=== PATIENT | female | born 1990 | race Caucasian/White ===

== ENCOUNTER 2016-11-08 18:11 | Emergency (ER) | payer SELFPAY ==
--- NOTE | 2016-11-08 19:48 | DIAGNOSTIC IMAGING REPORT ---
PROCEDURE: US COMPLETE PELVIC W/TRANSVAG INDICATION: Left pelvic pain x 1 day TECHNIQUE: Transabdominal and endovaginal valdes scale and color Doppler sonographic images of the female pelvis were obtained. COMPARISON: None. FINDINGS: TRANSABDOMINAL SCANS: Retroverted uterus. Normal kidneys. TRANSVAGINAL SCANS: The uterus measures 8.2 x 3.8 x 5.8 cm. Myometrium is unremarkable. Endometrium is normal and measures 9.8 mm. Left ovary measures 3.9 x 3.1 x 2.7 cm with a 2.5 cm simple cyst. Right ovary measures 3.4 x 1.7 x 3.2 cm with small peripheral follicles. There is vascular flow to both ovaries. There is no free fluid in the cul-de-sac. IMPRESSION: 1. 2.5 cm simple left ovarian cyst 2. Retroverted uterus.
--- NOTE | 2016-11-08 21:26 | DIAGNOSTIC IMAGING REPORT ---
PROCEDURE: CT ABD/PELVIS WITH CONTRAST INDICATION: ABDOMINAL PAIN TECHNIQUE: 94 ml of Isovue 300 were injected intravenously and axial images were obtained of the entire abdomen and pelvis with sagittal and coronal reformations. COMPARISON: Compared to pelvic ultrasound earlier today (11/08/2016). FINDINGS: ABDOMEN: Gallbladder, liver, spleen, pancreas, kidneys, and aorta are normal. Bowel pattern is normal, including appendix. PELVIS: Retroverted uterus (normal variant). There is 2.5 cm left ovarian cyst with minimal free fluid. Right adnexal region appears normal. No evidence of free fluid. IMPRESSION: 1. There is a 2.5 cm left ovarian cyst with minimal free fluid. 2. Retroverted uterus (normal variant). 3. Otherwise negative CT abdomen and pelvis. 4. Finding discussed with NAN Fair. All CT scans at this facility use dose modulation, iterative reconstruction, and/or weight-based dosing when appropriate to reduce radiation dose to as low as reasonably achievable.
--- NOTE | 2016-11-08 21:38 | ED NURSING NOTES ---
Clinical Report - Nurses [facility] [address] [place] [address] 11/08/2016 18:11 Patient: JAY WINSLOW TRIAGE Triage time 1820 PM. Acuity: LEVEL 3. Chief Complaint: PELVIC PAIN. Alert. No acute distress. KATY COMA SCORE: [place] Coma Scale: 15- eyes open spontaneously (4); best verbal response- oriented x 4 (5); best motor response- obeys commands (6). --18:29 Sarah Lopez R.N. 18:22 11/08/16. BP: 134/76. HR: 56. RR: 20. O2 saturation: 100% on room air. Temp: 98.7 F (oral). Pain level now: 05/31. --18:29 Sarah Lopez R.N. Weight: 72.5 kg estimated. Height/Length: 64 inches Per Patient. BMI: 27.5. --18:29 Sarah Lopez R.N. Medications None. --18:23 Sarah Lopez R.N. Medication/allergy information source: the patient. --18:29 Sarah Lopez R.N. Allergies No Known Drug Allergy. --18:23 Sarah Lopez R.N. History Arrived by private vehicle. Historian: patient. Accompanied by family. Primary physician (none). ( Pt amharic speaking states that last night around 11 pm started with pelvic pain to the point that could not walk, denies pain upon urination, normal periods, not sexually active since October. Pt came to ED for further evaluation). This started last night. She has had abdominal pain and flank pain. No hematuria, abnormal bleeding or fever. 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 PAST MEDICAL HX: Immunizations: up-to-date. Last normal menstrual period- 1 weeks about. Sexual history - engages in unprotected sex. Uses contraception intermittently. Uses control pills. SOCIAL HX: Never smoker. No alcohol use or drug use. She has traveled outside the [place] (3 motnhs ago to [place]). SELF HARM ASSESSMENT: A self harm assessment was performed. The patient answered "no" to the question "Do you have thoughts of harming or killing yourself?" and "Have you recently had thoughts about harming or killing others?". FALL RISK ASSESSMENT: Fall risk assessment completed. No fall risk identified. NUTRITIONAL RISK ASSESSMENT: The nutritional risk assessment revealed no deficiencies. FUNCTIONAL ASSESSMENT: Functional assessment: no impairments noted. LEARNING NEEDS ASSESSMENT: The learning needs assessment revealed no barriers. SKIN INTEGRITY ASSESSMENT: Skin integrity risk assessment completed. No skin integrity risk identified. --18:29 Sarah Lopez R.N. PROBLEMS: Kidney Infection. --18:24 Sarah Lopez R.N. ADDITIONAL SURGERIES: no known surgeries. Interventions ID band on patient. --18:29 Sarah Lopez R.N. PHYSICAL ASSESSMENT Ambulatory to room. GENERAL / NEURO / PSYCH: Alert. Oriented X 4. Appears in no acute distress. Appears in pain. HEENT: Mucous membranes are pink. RESPIRATORY: Respirations not labored. Breath sounds within normal limits. CVS: Capillary refill less than 2 seconds. GI / : Abdomen soft. Bowel sounds within normal limits. Vaginal bleeding. Vaginal discharge. No vaginal bleeding or discharge. SKIN: Skin is warm and dry. --18:29 Sarah Lopez R.N. NURSING PROGRESS NOTES The initial plan of care for this patient has been created This plan of care was discussed with the patient. Patient gowned. Warming measures: blanket applied. Reassurance given and given. Two patient identifiers checked. Call light placed in reach. Side rails up x 1. Bed placed in lowest position. Brakes of bed on. Brakes of chair on. --18:31 Sarah Lopez R.N. PELVIC EXAM: Pelvic exam performed by GABRIELLA Manzano). Assisted by two nurses. Preparation: pelvic tray and culture medium. Procedure: speculum exam. Status post-procedure: she was stable and no complications were noted. Total time of assist / procedure: (less than 10 minutes). The patient is calm. GI / : The patient reports abdominal pain. Denies nausea, diarrhea or difficulty with urination. --18:45 Sarah Lopez R.N. ( Ultrasound at bedside). --19:15 Sobia Spears 19:48 11/08/2016 Site #1 started via IV in the right antecubital space with an 20g angiocath, with aseptic technique and good blood return; one attempt. Blood drawn: rainbow set. Labeled in the presence of the patient and sent to the lab. Saline lock flushed with 10 mL saline. --19:53 Sobia Spears 19:53 11/08/16. BP: 117/70. HR: 85. RR: 20. O2 saturation: 100% on room air. Pain level now: 05/31. --19:53 Sobia Spears The patient reports no complaints and she is resting quietly. --19:53 Sobia Spears 20:26 11/08/2016 Toradol IVP 30 mg given over 1 minute(s) via site #1. Allergies verified and confirmed 5 rights. IV patency established. IV site checked: no pain, redness, or swelling. IV flushed thoroughly pre- and post-medication administration. IVP given by RN. --20:26 Sobia Spears Patient transported to [place] by stretcher with tech. (20:50). --20:54 Brandi Mccurdy R.N. 21:03 11/08/2016 Dilaudid (HYDROmorphone HCl PF) IVP 0.5 mg given over 1 minute(s) via site #1. Allergies verified, confirmed 5 rights and sedative warning given to the patient. IV patency established. IV site checked: no pain, redness, or swelling. IV flushed thoroughly pre- and post-medication administration. IVP given by RN. --21:03 Brandi Mccurdy R.N. 21:03 11/08/16. BP: 115/68. HR: 97. RR: 15. O2 saturation: 100% on room air. Sanches-Novoa pain scale: 10. --21:04 Brandi Mccurdy R.N. DISPOSITION / DISCHARGE 21:50 11/08/16. BP: 117/69. HR: 85. RR: 20. O2 saturation: 100%. Temp: 98.3 F (oral). Pain level now: 01/29. --00:52 Sobia Spears 21:48 11/08/2016 Site #1 removed upon discharge. Catheter intact. Bandaid applied. --00:52 Sobia Spears 21:52 11/08/16. Condition at departure: stable. No learning barriers present. Discharge instructions provided and reviewed with the patient. Reviewed warnings (Do not drive on this medication). Reviewed medication(s) side effects, precautions, dosing and course information. Prescription(s) given to the patient. Patient verbalized understanding. Written instructions provided in Belarusian. ( Follow up with PCP in three days). The patient was discharged by the physician. She was discharged home and accompanied by family. She left the Emergency Department ambulatory and via private vehicle. Family member driving. --00:52 Sobia Spears. Locked/Released at 11/09/2016 0:53 by Sobia Spears,
--- NOTE | 2016-11-08 21:38 | ED NURSING NOTES ---
Clinical Report - Nurses [facility] [address] [place] [address] 11/08/2016 18:11 Patient: JAY WINSLOW TRIAGE Triage time 1820 PM. Acuity: LEVEL 3. Chief Complaint: PELVIC PAIN. Alert. No acute distress. KATY COMA SCORE: [place] Coma Scale: 15- eyes open spontaneously (4); best verbal response- oriented x 4 (5); best motor response- obeys commands (6). --18:29 Sarah Lopez R.N. 18:22 11/08/16. BP: 134/76. HR: 56. RR: 20. O2 saturation: 100% on room air. Temp: 98.7 F (oral). Pain level now: 05/31. --18:29 Sarah Lopez R.N. Weight: 72.5 kg estimated. Height/Length: 64 inches Per Patient. BMI: 27.5. --18:29 Sarah Lopez R.N. Medications None. --18:23 Sarah Lopez R.N. Medication/allergy information source: the patient. --18:29 Sarah Lopez R.N. Allergies No Known Drug Allergy. --18:23 Sarah Lopez R.N. History Arrived by private vehicle. Historian: patient. Accompanied by family. Primary physician (none). ( Pt kinyarwanda speaking states that last night around 11 pm started with pelvic pain to the point that could not walk, denies pain upon urination, normal periods, not sexually active since October. Pt came to ED for further evaluation). This started last night. She has had abdominal pain and flank pain. No hematuria, abnormal bleeding or fever. 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 PAST MEDICAL HX: Immunizations: up-to-date. Last normal menstrual period- 1 weeks about. Sexual history - engages in unprotected sex. Uses contraception intermittently. Uses control pills. SOCIAL HX: Never smoker. No alcohol use or drug use. She has traveled outside the [place] (3 motnhs ago to [place]). SELF HARM ASSESSMENT: A self harm assessment was performed. The patient answered "no" to the question "Do you have thoughts of harming or killing yourself?" and "Have you recently had thoughts about harming or killing others?". FALL RISK ASSESSMENT: Fall risk assessment completed. No fall risk identified. NUTRITIONAL RISK ASSESSMENT: The nutritional risk assessment revealed no deficiencies. FUNCTIONAL ASSESSMENT: Functional assessment: no impairments noted. LEARNING NEEDS ASSESSMENT: The learning needs assessment revealed no barriers. SKIN INTEGRITY ASSESSMENT: Skin integrity risk assessment completed. No skin integrity risk identified. --18:29 Sarah Lopez R.N. PROBLEMS: Kidney Infection. --18:24 Sarah Lopez R.N. ADDITIONAL SURGERIES: no known surgeries. Interventions ID band on patient. --18:29 Sarah Lopez R.N. PHYSICAL ASSESSMENT Ambulatory to room. GENERAL / NEURO / PSYCH: Alert. Oriented X 4. Appears in no acute distress. Appears in pain. HEENT: Mucous membranes are pink. RESPIRATORY: Respirations not labored. Breath sounds within normal limits. CVS: Capillary refill less than 2 seconds. GI / : Abdomen soft. Bowel sounds within normal limits. Vaginal bleeding. Vaginal discharge. No vaginal bleeding or discharge. SKIN: Skin is warm and dry. --18:29 Sarah Lopez R.N. NURSING PROGRESS NOTES The initial plan of care for this patient has been created This plan of care was discussed with the patient. Patient gowned. Warming measures: blanket applied. Reassurance given and given. Two patient identifiers checked. Call light placed in reach. Side rails up x 1. Bed placed in lowest position. Brakes of bed on. Brakes of chair on. --18:31 Sarah Lopez R.N. PELVIC EXAM: Pelvic exam performed by GABRIELLA Manzano). Assisted by two nurses. Preparation: pelvic tray and culture medium. Procedure: speculum exam. Status post-procedure: she was stable and no complications were noted. Total time of assist / procedure: (less than 10 minutes). The patient is calm. GI / : The patient reports abdominal pain. Denies nausea, diarrhea or difficulty with urination. --18:45 Sarah Lopez R.N. ( Ultrasound at bedside). --19:15 Sobia Spears 19:48 11/08/2016 Site #1 started via IV in the right antecubital space with an 20g angiocath, with aseptic technique and good blood return; one attempt. Blood drawn: rainbow set. Labeled in the presence of the patient and sent to the lab. Saline lock flushed with 10 mL saline. --19:53 Sobia Spears 19:53 11/08/16. BP: 117/70. HR: 85. RR: 20. O2 saturation: 100% on room air. Pain level now: 05/31. --19:53 Sobia Spears The patient reports no complaints and she is resting quietly. --19:53 Sobia Spears 20:26 11/08/2016 Toradol IVP 30 mg given over 1 minute(s) via site #1. Allergies verified and confirmed 5 rights. IV patency established. IV site checked: no pain, redness, or swelling. IV flushed thoroughly pre- and post-medication administration. IVP given by RN. --20:26 Sobia Spears Patient transported to [place] by stretcher with tech. (20:50). --20:54 Brandi Mccurdy R.N. 21:03 11/08/2016 Dilaudid (HYDROmorphone HCl PF) IVP 0.5 mg given over 1 minute(s) via site #1. Allergies verified, confirmed 5 rights and sedative warning given to the patient. IV patency established. IV site checked: no pain, redness, or swelling. IV flushed thoroughly pre- and post-medication administration. IVP given by RN. --21:03 Brandi Mccurdy R.N. 21:03 11/08/16. BP: 115/68. HR: 97. RR: 15. O2 saturation: 100% on room air. Sanches-Novoa pain scale: 10. --21:04 Brandi Mccurdy R.N. DISPOSITION / DISCHARGE 21:50 11/08/16. BP: 117/69. HR: 85. RR: 20. O2 saturation: 100%. Temp: 98.3 F (oral). Pain level now: 01/29. --00:52 Sobia Spears 21:48 11/08/2016 Site #1 removed upon discharge. Catheter intact. Bandaid applied. --00:52 Sobia Spears 21:52 11/08/16. Condition at departure: stable. No learning barriers present. Discharge instructions provided and reviewed with the patient. Reviewed warnings (Do not drive on this medication). Reviewed medication(s) side effects, precautions, dosing and course information. Prescription(s) given to the patient. Patient verbalized understanding. Written instructions provided in Tajik. ( Follow up with PCP in three days). The patient was discharged by the physician. She was discharged home and accompanied by family. She left the Emergency Department ambulatory and via private vehicle. Family member driving. --00:52 Sobia Spears. Locked/Released at 11/09/2016 0:53 by Sobia Spears,
--- NOTE | 2016-11-08 21:38 | ED CLINICAL REPORT ---
Clinical Report - Physicians/Mid Levels [facility] [address] [place] [address] 11/08/2016 18:11 Patient: JAY WINSLOW Time Seen: 19:23 Nov 08 2016. Arrived- By private vehicle. Historian- patient. HISTORY OF PRESENT ILLNESS Chief Complaint: ABDOMINAL PAIN. It is described as "pain". This started just prior to arrival and is still present. (patient reports low abdominal pain, with no associated urgency or frequency. Reports last menstrual period about 10 days previously. Denies diarrhea. Denies sick contacts. Denies history of similar pain.). REVIEW OF SYSTEMS No constipation, black stools, difficulty with urination, pain with urination or chest pain. No difficulty breathing. All systems otherwise negative, except as recorded above. SOCIAL HISTORY Never smoker. No alcohol use. ADDITIONAL NOTES The nursing notes have been reviewed. PHYSICAL EXAM Vital Signs: 11/08/2016 18:22 BP: 134/76. HR: 56. RR: 20. O2 saturation: 100%. Temp: 98.7 F. Pain level now: 8/10. Appearance: Alert. Eyes: Eyes normal inspection. Neck: Normal inspection. No lymphadenopathy or thyromegaly. CVS: Normal heart rate and rhythm. Heart sounds normal. Respiratory: Breath sounds normal. Abdomen: Soft. Moderate tenderness in the suprapubic area. Back: Normal inspection. No CVA tenderness. : Normal external exam. No vaginal bleeding. Bimanual exam normal. Mild uterine tenderness. (chaperoned exam with Sarah). Skin: Skin warm. Normal skin color. Neuro: Oriented X 3. LABS, X-RAYS, AND EKG Pelvic Sonogram: IMPRESSION: 1. 2.5 cm simple left ovarian cyst 2. Retroverted uterus. Electronically Final signed by:Anand Harmon MD 11/08/2016 7:48:31 PM. Laboratory Tests: CBC w Diff: (KVNG: 11/08/2016 19:50) ( MsgRcvd 11/08/2016 20:03) Final results Test Result Flag Units (Reference) WHITE BLOOD COUNT 14.0 H K/uL (4.5-11.5) RED BLOOD COUNT 4.49 M/uL (4.00-5.20) HEMOGLOBIN 12.4 gm/dL (12.0-16.0) HEMATOCRIT 38.2 % (36.0-46.0) MEAN CELL VOLUME 85 fL (80-100) MEAN CORPUSCULAR HGB 28 pg (26-34) MEAN CORPUSCULAR HGB CONC 32 g/dL (31-37) RED CELL DISTRIBUTION WIDTH 14.3 % (11.6-14.8) PLATELET COUNT 400 K/uL (150-400) NEUTROPHIL % 77.9 H % (50-75) LYMPH % 15.2 L % (25-40) MONO % 6.2 % (3-14) EOSINOPHIL % 0.4 % (0-4) BASOPHIL % 0.3 % (0-2) Wet Prep: (KVNG: 11/08/2016 18:40) ( MsgRcvd 11/08/2016 19:40) Final results SPECIMEN DESCRIPTION: C Test Result Flag Units (Reference) WET MOUNT CLUE CELLS:: NONE EPITHELIAL CELLS: MODERATE -- SOURCE?: CERVIX WHITE BLOOD CELLS: FEW TRICHOMONAS:: NONE -- YEAST:: NONE . PROGRESS AND PROCEDURES Course of Care: During the time in the ED, the following DDX were considered: acute surgical abdomen, hemodynamic or metabolic instability, dehydration, gastroenteritis-viral, food borne, or bacterial, food intolerance, irritable or inflammatory bowel, infection, sepsis. 11/08/2016 21:03 BP: 115/68. HR: 97. RR: 15. O2 saturation: 100%. Sanches-Novoa pain scale: 2/10. Patient is stable. Patient/family counseled. Disposition: Discharged. Condition: good. CLINICAL IMPRESSION Acute pelvic pain. Simple left ovarian cyst. Clinical picture does not suggest cholecystitis, appendicitis or diverticulitis. INSTRUCTIONS Drink plenty of fluids. Drink plenty of fluids. Warnings: Further evaluation is necessary. Prescription Medications: Tylenol with Codeine Tylenol #3 (30 mg / 300 mg) : take 1 tablet orally every 6 hours. Dispense ten (10). No refill. Substitution is permissible. Follow-up: Follow up with your doctor in three days. (Electronically signed by Colleen Saxena P.A.-C 11/08/2016 22:13)
--- NOTE | 2016-11-08 21:38 | ED ORDER SUMMARY ---
..... Patient: JAY WINSLOW OrderSheet [facility] VisitID: [id number] [place] [address] 26y, F Registration Date/Time: 11/08/2016 ORDER SHEET Weight: 72.5 kg (estimated) Allergies: No Known Drug Allergy GENERAL ORDERS: US Pelvic Complete w Transvag Urgent (18:47 11/08/2016 EKoroleva P.A.-C) (Ack 18:52 NHouse ER Tech1) (20:39 NHouse ER Tech1) CBC w Diff Urgent (18:47 11/08/2016 EKoroleva P.A.-C) (Ack 18:52 NHouse ER Tech1) (20:26 HSoule) CMP Urgent (18:47 11/08/2016 EKoroleva P.A.-C) (Ack 18:52 NHouse ER Tech1) (20:26 HSoule) UA-Culture if indicated Urgent (18:47 11/08/2016 EKoroleva P.A.-C) (Ack 18:52 NHouse ER Tech1) Lipase Urgent (18:47 11/08/2016 EKoroleva P.A.-C) (Ack 18:52 NHouse ER Tech1) (20:39 NHouse ER Tech1) Urine Urgent (18:47 11/08/2016 EKoroleva P.A.-C) (Ack 18:52 NHouse ER Tech1) (20:26 HSoule) Wet Prep (Cervix) (c) Urgent (19:25 11/08/2016 EKoroleva P.A.-C) (Ack 19:29 NHouse ER Tech1) (20:39 NHouse ER Tech1) GC/Chlamydia (Cervix) (c) Urgent (19:25 11/08/2016 EKoroleva P.A.-C) (Ack 19:29 NHouse ER Tech1) (20:39 NHouse ER Tech1) CT Abd/Pel w Cont (No) ( see lab) Urgent (20:25 11/08/2016 EKoroleva P.A.-C) (Ack 20:39 NHouse ER Tech1) (21:03 RCollier R.N.) MEDICATION ORDERS: IV FLUIDS: IV Saline Lock (18:47 11/08/2016 EKaneudy P.A.-C) (Ack 19:15 HSoule) (19:53 HSoule) Toradol IV 30 mg (NOW) (20:09 11/08/2016 EKoroleva P.A.-C) (Ack 20:19 HSoule) (20:26 HSoule) Dilaudid IV 0.5 mg (HIGH ALERT MEDICATION, NOW) (20:48 11/08/2016 EKoroleva P.A.-C) (Ack 20:48 RCollier R.N.) (21:03 RCollier R.N.) ORDER SHEET NOTES: [Electronically signed by Colleen Saxena PAshwinAAshwin-C (22:13 11/08/2016)] [Electronically signed by Sobia Spears (00:53 11/09/2016)] [Electronically locked/signed by Sobia Spears (00:53 11/09/2016)]
--- NOTE | 2016-11-08 21:38 | ED ORDER SUMMARY ---
..... Patient: JAY WINSLOW OrderSheet [facility] VisitID: [id number] [place] [address] 26y, F Registration Date/Time: 11/08/2016 ORDER SHEET Weight: 72.5 kg (estimated) Allergies: No Known Drug Allergy GENERAL ORDERS: US Pelvic Complete w Transvag Urgent (18:47 11/08/2016 EKoroleva P.A.-C) (Ack 18:52 NHouse ER Tech1) (20:39 NHouse ER Tech1) CBC w Diff Urgent (18:47 11/08/2016 EKoroleva P.A.-C) (Ack 18:52 NHouse ER Tech1) (20:26 HSoule) CMP Urgent (18:47 11/08/2016 EKoroleva P.A.-C) (Ack 18:52 NHouse ER Tech1) (20:26 HSoule) UA-Culture if indicated Urgent (18:47 11/08/2016 EKoroleva P.A.-C) (Ack 18:52 NHouse ER Tech1) Lipase Urgent (18:47 11/08/2016 EKoroleva P.A.-C) (Ack 18:52 NHouse ER Tech1) (20:39 NHouse ER Tech1) Urine Urgent (18:47 11/08/2016 EKoroleva P.A.-C) (Ack 18:52 NHouse ER Tech1) (20:26 HSoule) Wet Prep (Cervix) (c) Urgent (19:25 11/08/2016 EKoroleva P.A.-C) (Ack 19:29 NHouse ER Tech1) (20:39 NHouse ER Tech1) GC/Chlamydia (Cervix) (c) Urgent (19:25 11/08/2016 EKoroleva P.A.-C) (Ack 19:29 NHouse ER Tech1) (20:39 NHouse ER Tech1) CT Abd/Pel w Cont (No) ( see lab) Urgent (20:25 11/08/2016 EKoroleva P.A.-C) (Ack 20:39 NHouse ER Tech1) (21:03 RCollier R.N.) MEDICATION ORDERS: IV FLUIDS: IV Saline Lock (18:47 11/08/2016 EKaneudy P.A.-C) (Ack 19:15 HSoule) (19:53 HSoule) Toradol IV 30 mg (NOW) (20:09 11/08/2016 EKoroleva P.A.-C) (Ack 20:19 HSoule) (20:26 HSoule) Dilaudid IV 0.5 mg (HIGH ALERT MEDICATION, NOW) (20:48 11/08/2016 EKoroleva P.A.-C) (Ack 20:48 RCollier R.N.) (21:03 RCollier R.N.) ORDER SHEET NOTES: [Electronically signed by Colleen Saxena PAshwinAAshwin-C (22:13 11/08/2016)] [Electronically signed by Sobia Spears (00:53 11/09/2016)] [Electronically locked/signed by Sobia Spears (00:53 11/09/2016)]
--- NOTE | 2016-11-09 00:53 | ED MED RECONCILIATION SUMMARY ---
Patient: JAY WINSLOW Medication Reconciliation Report [facility] VisitID: [id number] [place] [address] 26y, F Registration Date/Time: 11/08/2016 Weight: 72.5 kg Height/Length: 64 in. BMI: 27.5 ALLERGIES: No Known Drug Allergy The patient's Home Medications are listed below: NONE. The source(s) of the original Home Medication information: patient The following Medications were given to the patient in the Emergency Department: Toradol [IVP] IVP 30 mg, administered: 11/08/2016 8:26:00 PM Dilaudid [IVP] IVP 0.5 mg, administered: 11/08/2016 9:03:00 PM The following Medications were prescribed to the patient: Tylenol with Codeine Tylenol #3 (30 mg / 300 mg) : take 1 tablet orally every 6 hours. Dispense ten (10). No refill. Substitution is permissible. -- Colleen Saxena P.A.-C
--- NOTE | 2016-11-09 00:53 | ED MAR SUMMARY ---
..... Medication Administration Record [facility] [address] [place] [address] Patient: JAY WINSLOW Visit ID: [id number] 26y, F Weight: 72.5 kg Height/Length: 64 in BMI: 27.5 ALLERGIES: No Known Drug Allergy Given 20:26 11/08/2016 Sobia Spears, Medication Administered: TORADOL [IVP], Dose: 30 mg IVP over 1 minute(s), Site: #1 right AC. Medication Ordered: Toradol IV 30 mg (NOW). Given 21:03 11/08/2016 Brandi Mccurdy, RAshwinNAshwin Medication Administered: DILAUDID [IVP] (HYDROMORPHONE HCL PF), Dose: 0.5 mg IVP over 1 minute(s), Site: #1 right AC. Medication Ordered: Dilaudid IV 0.5 mg (HIGH ALERT MEDICATION, NOW).
--- NOTE | 2016-11-09 00:53 | ED MED RECONCILIATION SUMMARY ---
Patient: JAY WINSLOW Medication Reconciliation Report [facility] VisitID: [id number] [place] [address] 26y, F Registration Date/Time: 11/08/2016 Weight: 72.5 kg Height/Length: 64 in. BMI: 27.5 ALLERGIES: No Known Drug Allergy The patient's Home Medications are listed below: NONE. The source(s) of the original Home Medication information: patient The following Medications were given to the patient in the Emergency Department: Toradol [IVP] IVP 30 mg, administered: 11/08/2016 8:26:00 PM Dilaudid [IVP] IVP 0.5 mg, administered: 11/08/2016 9:03:00 PM The following Medications were prescribed to the patient: Tylenol with Codeine Tylenol #3 (30 mg / 300 mg) : take 1 tablet orally every 6 hours. Dispense ten (10). No refill. Substitution is permissible. -- Colleen Saxena P.A.-C
--- NOTE | 2016-11-09 00:53 | ED MAR SUMMARY ---
..... Medication Administration Record [facility] [address] [place] [address] Patient: JAY WINSLOW Visit ID: [id number] 26y, F Weight: 72.5 kg Height/Length: 64 in BMI: 27.5 ALLERGIES: No Known Drug Allergy Given 20:26 11/08/2016 Sobia Spears, Medication Administered: TORADOL [IVP], Dose: 30 mg IVP over 1 minute(s), Site: #1 right AC. Medication Ordered: Toradol IV 30 mg (NOW). Given 21:03 11/08/2016 Brandi Mccurdy, RAshwinNAshwin Medication Administered: DILAUDID [IVP] (HYDROMORPHONE HCL PF), Dose: 0.5 mg IVP over 1 minute(s), Site: #1 right AC. Medication Ordered: Dilaudid IV 0.5 mg (HIGH ALERT MEDICATION, NOW).
--- NOTE | 2016-11-09 00:53 | ED DISCHARGE INSTRUCTIONS ---
Patient: JAY WINSLOW General Instructions [facility] VisitID: [id number] [place] [address] 26y, F Registration Date/Time: 11/08/2016 Acute pelvic pain. Simple left ovarian cyst. INSTRUCTIONS Drink plenty of fluids. Drink plenty of fluids. Warnings: Further evaluation is necessary. Prescription Medications: Tylenol with Codeine Tylenol #3 (30 mg / 300 mg) : take 1 tablet orally every 6 hours. Dispense ten (10). No refill. Substitution is permissible. Follow-up: Follow up with your doctor in three days. ADDITIONAL INFORMATION Ovarian Cyst The ovary is a small organ located on each side of the uterus. During each menstrual cycle a tiny egg sac forms in the ovary. If the egg is released but does not occur, this sac usually dissolves. Sometimes, the sac may fill with fluid. It then enlarges into a painful cyst. Usually the cyst will rupture or shrink on its own. In either case, the pain gradually goes away over the next 1-3 days. If the cyst does not shrink or rupture, it may cause continued pain. Home Care: Rest in bed and avoid heavy exertion until you are feeling better. Heat to the lower abdomen usually helps (heating pad or hot packs -- a small towel soaked in hot water). You may use acetaminophen (Tylenol) or ibuprofen (Motrin, Advil) to control pain, unless another pain medicine was prescribed. [NOTE: If you have chronic liver or kidney disease or ever had a stomach ulcer or GI bleeding, talk with your doctor before using these medicines.] Follow Up: See your doctor within the next 2-3 days if your pain doesnt improve. Otherwise, follow up with your doctor after your next period or as directed by our staff. Get Prompt Medical Attention if any of the following occur: Pain worsens or fails to respond to the above measures Fever of 100.4F (38C) or higher, or as directed by your healthcare provider Heavy vaginal bleeding (soaking one pad an hour for three hours) You feel weak or dizzy Fainting Passage of a pink or valdes tissue with menstrual bleeding Pelvic Pain, Uncertain Cause Based on your visit today, the exact cause of your pelvic pain is not certain. But your condition does not appear to be serious at this time. However, the signs of a serious problem may take more time to appear. Therefore, it is important for you to watch for any new symptoms or worsening of your condition. Home Care: Rest until you are feeling better. Avoid sexual intercourse until your pain goes away. You may use acetaminophen (Tylenol) or ibuprofen (Motrin, Advil) to control pain, unless another medicine was prescribed. [NOTE: If you have chronic liver or kidney disease or ever had a stomach ulcer or GI bleeding, talk with your doctor before using these medicines.] Follow Up with your doctor as advised. If a culture test was taken, call in two days for the results. If the culture is positive, you will be given more advice at that time. Otherwise, follow-up with your doctor or this facility as instructed. Get Prompt Medical Attention if any of the following occur: Fever of 100.4F (38C) or higher, or as directed by your healthcare provider Vaginal discharge Worsening pain Weakness, dizziness or fainting Unexpected vaginal bleeding or passage of valdes or white tissue from the vagina Pain that moves to the right lower abdomen You have been given the following additional information: Ovarian Cyst Pelvic Pain, Unknown Cause (Electronically signed by Colleen Saxena P.A.-C 11/08/2016 22:13)
== END 2016-11-08 21:50 | disposition home or self-care (01) ==
LOC: ED SRH 18:11
DX: R10.2 Pelvic and perineal pain (principal); N83.292 Other ovarian cyst, left side
CPT/HCPCS: 90100; 90195; 91227; 91228; 92235; 95059